=== PATIENT | male | born 2000 | race American Indian/Alaskan Native ===

== ENCOUNTER 2020-09-05 09:48 | Emergency (ER) | payer BC ==
[2020-09-05 10:54] VITALS: BP 111/70
--- NOTE | 2020-09-05 12:41 | Emergency Department Report ---
ED General Adult HPI - General Chief complaint: Fever Stated complaint: BODY PAIN/POSS FEVER Time Seen by Provider: 09/05/20 11:22 Source: patient Mode of arrival: Ambulatory Limitations: No Limitations - History of Present Illness Initial comments: 20-year-old -L[place] male patient presents with complaints of body aches, chills, and cough x3 days. He denies any loss of taste or smell, chest pain, hemoptysis, abdominal pain, nausea/vomiting/diarrhea, or recent known sick contacts. No past medical history per patient. He has not gotten Covid testing or the Covid vaccination. He has not tried any OTC medications for his symptoms. - Related Data Previous Rx's Medication Instructions Recorded Last Taken Type Amoxicillin [Trimox CAP] 500 mg PO BID 10 Days #20 capsule 09/05/20 Unknown Rx Allergies Allergy/AdvReac Type Severity Reaction Status Date / Time No Known Allergies Allergy Unverified 09/05/20 10:51 ED Review of Systems ROS: Stated complaint: BODY PAIN/POSS FEVER Other details as noted in HPI Constitutional: chills, malaise, weakness. denies: diaphoresis, fever ENT: throat pain Respiratory: cough. denies: shortness of breath Cardiovascular: denies: chest pain Gastrointestinal: denies: abdominal pain, nausea, vomiting Skin: denies: rash, lesions, change in color Neurological: denies: headache Hematological/Lymphatic: denies: swollen glands ED Past Medical Hx - Past Medical History Previous Medical History?: No - Surgical History Past Surgical History?: No - Medications Home Medications: Home Medications Medication Instructions Recorded Confirmed Last Taken Type Amoxicillin [Trimox CAP] 500 mg PO BID 10 Days #20 capsule 09/05/20 Unknown Rx ED Physical Exam - General Limitations: No Limitations General appearance: alert, in no apparent distress - Head Head exam: Present: atraumatic, normocephalic - Eye Eye exam: Present: normal appearance. Absent: scleral icterus - ENT ENT exam: Present: mucous membranes moist - Expanded ENT Exam Expanded Throat exam: Positive: tonsillar erythema. Negative: tonsillomegaly, R peritonsillar mass, L peritonsillar mass - Neck Neck exam: Present: normal inspection, lymphadenopathy (mild anterior ) - Respiratory Respiratory exam: Present: normal lung sounds bilaterally. Absent: respiratory distress - Cardiovascular Cardiovascular Exam: Present: regular rate, normal rhythm - Extremities Exam Extremities exam: Present: full ROM - Back Exam Back exam: Present: normal inspection - Neurological Exam Neurological exam: Present: alert, oriented X3 - Psychiatric Psychiatric exam: Present: normal affect, normal mood - Skin Skin exam: Present: warm, dry, intact, normal color. Absent: rash ED Course Vital Signs 09/05/20 10:53 Temperature 98.0 F Pulse Rate 75 Respiratory 18 Rate Blood Pressure 111/70 O2 Sat by Pulse 98 Oximetry ED Medical Decision Making - Radiology Data Radiology results: report reviewed CHEST 2 VIEWS INDICATION / CLINICAL INFORMATION: Cough. COMPARISON: None available. FINDINGS: SUPPORT DEVICES: None. HEART / MEDIASTINUM: The heart size and pulmonary vasculature are normal. LUNGS / PLEURA: No significant pulmonary or pleural abnormality. No pneumothorax. ADDITIONAL FINDINGS: No significant additional findings. IMPRESSION: No acute findings. - Medical Decision Making 20-year-old -[place] male patient presents with complaints of body aches, chills, and cough x3 days. He denies any loss of taste or smell, chest pain, hemoptysis, abdominal pain, nausea/vomiting/diarrhea, or recent known sick contacts. No past medical history per patient. He has not gotten Covid testing or the Covid vaccination. He has not tried any OTC medications for his symptoms. Erythema of the tonsils noted bilaterally with mild anterior cervical lymphadenopathy. Lung exam is normal. Chest x-ray is normal. No significant abnormalities noted on chest x-ray. Recommend patient get outpatient testing for Covid, facility testing site list provided to patient. Patient informed to self quarantine at home until his results are back. Amoxil given for possible strep infection. Patient to follow-up with his primary care in 3 to 5 days. He is well-appearing and his vitals are normal he is stable for discharge home. Strict return precautions were discussed in great detail with patient verbalized understanding. Critical care attestation.: If time is entered above; I have spent that time in minutes in the direct care of this critically ill patient, excluding procedure time. ED Disposition Clinical Impression: Acute pharyngitis, Viral syndrome Disposition: - TO HOME OR SELFCARE Is pt being admited?: No Condition: Stable Instructions: Viral Respiratory Infection, [id number], Strep Throat, Adult, Prevent the Spread of COVID-19 if You Are Sick - [facility] [place] Prescriptions: Amoxicillin [Trimox CAP] 500 mg PO BID 10 Days #20 capsule Referrals: [facility] [Provider Group] - 3-5 Days Forms: Work/School Release Form(ED)
--- NOTE | 2020-09-05 13:03 | XRay Report ---
CHEST 2 VIEWS INDICATION / CLINICAL INFORMATION: Cough. COMPARISON: None available. FINDINGS: SUPPORT DEVICES: None. HEART / MEDIASTINUM: The heart size and pulmonary vasculature are normal. LUNGS / PLEURA: No significant pulmonary or pleural abnormality. No pneumothorax. ADDITIONAL FINDINGS: No significant additional findings. IMPRESSION: No acute findings. Signer Name: Derian Carlos MD Signed: 09/05/2020 12:58 PM Workstation Name: [id number]
== END 2020-09-05 13:52 | disposition home or self-care (01) ==
LOC: ED 09:48
DX: J02.9 Acute pharyngitis, unspecified (principal); B34.9 Viral infection, unspecified
CPT/HCPCS: 71046; 99283

== ENCOUNTER 2021-08-23 11:49 | Emergency (ER) | payer SELFPAY ==
[2021-08-23 13:15] VITALS: BP 133/61
[2021-08-23] MEDS ORDERED: dexAMETHasone 20 MG/5 ML VIAL IM ONE (15:47)
[2021-08-23] MEDS ORDERED: PENICILLIN G BENZATHINE 1.2 MILLION UNIT/2 ML INJ IM ONE (15:48)
[2021-08-23] MEDS ORDERED: KETOROLAC 30 MG/1 ML INJ IM ONE (15:49)
[2021-08-23 17:03] LABS: Hematocrit 46.8 % (35.5-45.6); Hemoglobin 15.5 gm/dl (11.8-15.2); Mean Corpuscular HGB Conc 33 % (32-34); Mean Corpuscular Volume 84 fl (84-94); Platelet Count 239 K/mm3 (140-440); Red Blood Count 5.59 M/mm3 (3.65-5.03); Red Cell Distribution Width 14.4 % (13.2-15.2)
[2021-08-23 17:24] LABS: Alanine Aminotransferase 13 units/L (7-56); Albumin 4.7 g/dL (3.9-5); BUN/Creatinine Ratio 9; Blood Urea Nitrogen 7 mg/dL (9-20); Hemolysis Index 24
--- NOTE | 2021-08-23 18:41 | Cat Scan Report ---
CT neck w con INDICATION / CLINICAL INFORMATION: 21 years Male; r/o [employer] pt tongue is swollen and pt can not talk. breathing ok 100ml of [id number]. TECHNIQUE: Contiguous thin cut axial images obtained through the neck following IV contrast. Sagittal and valeds l reconstructions performed by the technologist. All CT scans at this location are performed using CT dose reduction for ALARA by means of automated exposure control. COMPARISON: None available. FINDINGS: MUCOSAL SPACE: The motion and beam hardening degrade the image quality. However, there is mild promin ence of the palatine soft tissues as well as the uvula indicative of inflammatory changes and correla tion be needed regarding tonsillitis. However, there is no clear evidence of focal fluid collection o n the current exam to indicate abscess at. The edematous uvula appears to result in mild narrowing of the nasopharyngeal airway. The epiglottis appears uniform in size without clear evidence of significant enlargement at. There is motion artifact at the level the larynx of the laryngeal structures appear fairly symmetric. LYMPH NODES: There are notable a cervical lymph nodes are within the jugulodigastric at regions bilat erally with the largest nodes approaching 1 cm in short axis dimension. These nodes are likely reacti ve. Smaller nodes are seen along the jugular and posterior cervical chains bilaterally. SALIVARY GLANDS: The visualized parotid and submitted ventricular glands appear to demonstrate fairly symmetric attenuation without calcification. THYROID GLAND: The thyroid gland appears appropriate in size and contour. PARANASAL SINUSES: Visualized paranasal sinuses and mastoid air cells are essentially clear. SPINE: No significant abnormality of the cervical spine appreciated. VASCULAR STRUCTURES: The vascular structures are grossly unremarkable. There is relative paucity of f at along the cervical fascial planes in this young thin patient which may obscure inflammatory proces s. There is no clear evidence of significant mass effect. IMPRESSION: 1. There is mild prominence of the palatine soft tissues and uvula as detailed above indicative of in flammatory process. However, there is no clear evidence of fluid collection on the current CT. 2: There is reactive lymphadenopathy involving Signer Name: Kota Obando MD Signed: 08/23/2021 6:37 PM Workstation Name: [id number]
[2021-08-23] MEDS ORDERED: oxyCODONE /ACETAMINOPHEN 5-325MG TAB PO ONE (19:04)
--- NOTE | 2021-08-23 19:04 | Emergency Department Report ---
ED ENT HPI - General Chief complaint: Sore Throat Stated complaint: SORETHROAT Time Seen by Provider: 08/23/21 16:05 Source: patient Mode of arrival: Ambulatory Limitations: No Limitations - History of Present Illness Initial comments: 21-year-old black male with no past medical history presents to the emergency department for evaluation of 2-day history of worsening sore throat, headache, and intermittent fever. He states that today he has noticed increased swelling in his throat and he feels like he cannot swallow his own spit. MD complaint: sore throat -: Gradual, days(s) (2) Location: throat Severity: severe Severity scale (0 -10): 10 Quality: burning, aching Consistency: constant Worsens with: swallowing Associated Symptoms: fever, pain with swallowing, sore throat. denies: cough, gum swelling, toothache, tinnitus, hearing loss, discharge from ear, rhinorrhea - Related Data Previous Rx's Medication Instructions Recorded Last Taken Type Amoxicillin [Trimox CAP] 500 mg PO BID 10 Days #20 capsule 09/05/20 Unknown Rx Naproxen [Naprosyn] 500 mg PO BID #14 tab 08/23/21 Unknown Rx Nystas/Diphen/Xyl Visc/Mylanta 30 ml MM Q4H PRN #120 ml 08/23/21 Unknown Rx [Magic Mouthwash] methylPREDNISolone [Medrol 4MG 4 mg PO DAILY #1 pack 08/23/21 Unknown Rx DOSEPAK (21 tabs)] Allergies Allergy/AdvReac Type Severity Reaction Status Date / Time No Known Allergies Allergy Unverified 09/05/20 10:51 ED Dental HPI - General Chief complaint: Sore Throat Stated complaint: SORETHROAT Time Seen by Provider: 08/23/21 16:05 Source: patient Mode of arrival: Ambulatory Limitations: No Limitations - Related Data Previous Rx's Medication Instructions Recorded Last Taken Type Amoxicillin [Trimox CAP] 500 mg PO BID 10 Days #20 capsule 09/05/20 Unknown Rx Naproxen [Naprosyn] 500 mg PO BID #14 tab 08/23/21 Unknown Rx Nystas/Diphen/Xyl Visc/Mylanta 30 ml MM Q4H PRN #120 ml 08/23/21 Unknown Rx [Magic Mouthwash] methylPREDNISolone [Medrol 4MG 4 mg PO DAILY #1 pack 08/23/21 Unknown Rx DOSEPAK (21 tabs)] Allergies Allergy/AdvReac Type Severity Reaction Status Date / Time No Known Allergies Allergy Unverified 09/05/20 10:51 ED Review of Systems ROS: Stated complaint: SORETHROAT Other details as noted in HPI Comment: All other systems reviewed and negative Constitutional: fever. denies: chills, diaphoresis, malaise, weakness Eyes: denies: eye pain ENT: throat pain. denies: congestion Respiratory: shortness of breath. denies: cough, wheezing Cardiovascular: denies: chest pain, palpitations Gastrointestinal: abdominal pain. denies: nausea, vomiting Genitourinary: denies: urgency, dysuria Musculoskeletal: denies: back pain Skin: denies: rash, lesions Neurological: headache. denies: weakness ED Past Medical Hx - Past Medical History Previous Medical History?: No - Surgical History Past Surgical History?: No - Medications Home Medications: Home Medications Medication Instructions Recorded Confirmed Last Taken Type Amoxicillin [Trimox CAP] 500 mg PO BID 10 Days #20 capsule 09/05/20 Unknown Rx Naproxen [Naprosyn] 500 mg PO BID #14 tab 08/23/21 Unknown Rx Nystas/Diphen/Xyl Visc/Mylanta 30 ml MM Q4H PRN #120 ml 08/23/21 Unknown Rx [Magic Mouthwash] methylPREDNISolone [Medrol 4MG 4 mg PO DAILY #1 pack 08/23/21 Unknown Rx DOSEPAK (21 tabs)] ED Physical Exam - General Limitations: No Limitations General appearance: alert, in no apparent distress - Head Head exam: Present: atraumatic, normocephalic - Eye Eye exam: Present: normal appearance. Absent: scleral icterus, conjunctival injection, periorbital swelling, periorbital tenderness - Expanded ENT Exam Expanded Mouth exam: Present: normal external inspection, drooling, trismus, muffled voice Throat exam: Positive: tonsillar erythema (Anterior cervical), tonsillomegaly (Bilateral tonsillar swelling noted with tonsils nearly touching each other), tonsillar exudate. Negative: R peritonsillar mass, L peritonsillar mass - Neck Neck exam: Present: lymphadenopathy - Respiratory Respiratory exam: Present: normal lung sounds bilaterally. Absent: respiratory distress, wheezes, rales, rhonchi, stridor - Cardiovascular Cardiovascular Exam: Present: regular rate, normal heart sounds - GI/Abdominal GI/Abdominal exam: Present: soft, normal bowel sounds. Absent: distended, tenderness, guarding, rebound, rigid - Extremities Exam Extremities exam: Present: normal inspection, normal capillary refill - Back Exam Back exam: Present: normal inspection - Neurological Exam Neurological exam: Present: alert, oriented X3, normal gait - Psychiatric Psychiatric exam: Present: normal affect, normal mood - Skin Skin exam: Present: warm, dry, intact, normal color ED Course Vital Signs 08/23/21 13:14 Temperature 98.4 F Pulse Rate 65 Respiratory 18 Rate Blood Pressure 133/61 [Left] O2 Sat by Pulse 99 Oximetry - Reevaluation(s) Reevaluation #1: 08/23/21 19:07 Patient now able to talk clearly and states that pain and swelling of tonsils is much better. ED Medical Decision Making - Lab Data Result diagrams: 08/23/21 15:57 08/23/21 15:57 - Radiology Data Radiology results: report reviewed, image reviewed CT scan soft tissue neck with IV contrast: FINDINGS: MUCOSAL SPACE: The motion and beam hardening degrade the image quality. However, there is mild prominence of the palatine soft tissues as well as the uvula indicative of inflammatory changes and correlation be needed regarding tonsillitis. However, there is no clear evidence of focal fluid collection on the current exam to indicate abscess at. The edematous uvula appears to result in mild narrowing of the nasopharyngeal airway. The epiglottis appears uniform in size without clear evidence of significant enlargement at. There is motion artifact at the level the larynx of the laryngeal structures appear fairly symmetric. LYMPH NODES: There are notable a cervical lymph nodes are within the jugulodigastric at regions bilaterally with the largest nodes approaching 1 cm in short axis dimension. These nodes are likely reactive. Smaller nodes are seen along the jugular and posterior cervical chains bilaterally. SALIVARY GLANDS: The visualized parotid and submitted ventricular glands appear to demonstrate fairly symmetric attenuation without calcification. THYROID GLAND: The thyroid gland appears appropriate in size and contour. PARANASAL SINUSES: Visualized paranasal sinuses and mastoid air cells are essentially clear. SPINE: No significant abnormality of the cervical spine appreciated. VASCULAR STRUCTURES: The vascular structures are grossly unremarkable. There is relative paucity of fat along the cervical fascial planes in this young thin patient which may obscure inflammatory process. There is no clear evidence of significant mass effect. IMPRESSION: 1. There is mild prominence of the palatine soft tissues and uvula as detailed above indicative of inflammatory process. However, there is no clear evidence of fluid collection on the current CT. 2: There is reactive lymphadenopathy involving - Medical Decision Making 21-year-old black male with no past medical history presents to the emergency department for evaluation of 2-day history of worsening sore throat, headache, and intermittent fever. He states that today he has noticed increased swelling in his throat and he feels like he cannot swallow his own spit. Patient noted to have significant tonsillar swelling on exam with tonsils nearly touching each other along with drooling, trismus and muffled voice. Patient was treated with Decadron 10 mg IV, Toradol 15 mg IV, and Bicillin IA 1,200,[address] scan soft tissue neck with contrast did not show. Possible abscess. Patient will be discharged home with Medrol Dosepak, naproxen, and Magic mouthwash. He was given 1 Percocet prior to discharge for pain. He is advised to take medications as prescribed and follow-up with ENT for further evaluation and management. He is advised to return to the emergency department for any concerning symptoms. He verbalizes understanding of and agreement with plan of care. Critical care attestation.: If time is entered above; I have spent that time in minutes in the direct care of this critically ill patient, excluding procedure time. ED Disposition Clinical Impression: Exudative pharyngitis, Tonsillitis Disposition: 01 HOME / SELF CARE / HOMELESS Is pt being admited?: No Does the pt Need Aspirin: No Condition: Stable Instructions: Tonsillitis, [id number], Strep Throat, Adult, [id number], Pharyngitis, [id number] Additional Instructions: Take medications as prescribed. Follow-up with ear nose and throat doctor for further evaluation and management. Return to the emergency department as needed. Prescriptions: Nystas/Diphen/Xyl Visc/Mylanta [Magic Mouthwash] 30 ml MM Q4H PRN #120 ml PRN Reason: Sore Throat methylPREDNISolone [Medrol 4MG DOSEPAK (21 tabs)] 4 mg PO DAILY #1 pack Naproxen [Naprosyn] 500 mg PO BID #14 tab Referrals: TREVOR STEWARD MD [Primary Care Provider] - 3-5 Days GABRIEL SABILLON MD [Referring] - 3-5 Days ANANDA GAITAN MD [Staff Physician] - 3-5 Days Forms: Work/School Release Form(ED) Time of Disposition: 19:13
== END 2021-08-23 19:51 | disposition home or self-care (01) ==
LOC: ED 11:49
DX: J03.90 Acute tonsillitis, unspecified (principal)
CPT/HCPCS: 36415; 70491; 80053; 85027; 96372; 99284; J0561; J1100; J1885; Q9967